=== PATIENT | female | born 1995 | race Hispanic/Latino ===

== ENCOUNTER 2016-12-19 20:26 | Emergency (ER) | payer OTHER ==
[~2016-12-19] VITALS: Ht 152.4 cm; Wt 72.7 kg
[2016-12-19 20:30] VITALS: BP 116/78; PULSE 82; RESP 16; O2SAT 100
--- NOTE | 2016-12-19 21:02 | ED.REPORT ---
HPI-Extremity Problem Lower Date of Service Dec 19, 2016 ED Provider: Dr. Oj Deras MD A 21 year old, approx. 12 week female presents to the ED with right knee pain secondary to a work injury that occurred at 1100 this morning. She was at work when she reportedly fell onto her knees and has been experiencing persistent pain; right knee greater than the left. The patient was seen at Urgent Care this afternoon just after the injury occurred. X-ray of bilateral knees was negative for fracture. She was discharged with crutches and has been using them without relief. Patient presents to the ED this evening seeking an US for her . She is expressing concern that the fetus was injured during the fall and is currently endorsing abdominal cramps. She denies any other injuries at this time. Patient denies any vaginal bleeding. Nursing Notes Stated Complaint: FALL AT WORK EARLIER RIGHT KNEE PAIN Chief Complaint: Extremity Trauma Nursing Notes Reviewed: Yes Allergies: Coded Allergies: No Known Allergies (Unverified Allergy, Unknown, 12/19/16) General Time Seen by MD: 21:01 Chief Complaint Knee injury right Hx Obtained From: Patient Arrived By: Walk-in Onset Occurred: 5 - 8 hours ago Symptom Duration: Since onset Caused by: Accidental, Fall on ground Location: : Knee right Quality: Painful Severity: Current: Mild Severity: Maximum: Moderate Associated with: Reports: Abdominal pain, Denies: Unable to bear weight, Unable to move joint, Unable to walk Pertinent Negative: Pt denies other symptoms Recent Healthcare: No recent hospitalization, Recent doctor visit Past Medical History Past Medical History Notes: PCP: [facility] [place] [place] Past Medical History 12 weeks Past Surgical History None reported. Smoking History Unknown if Ever Smoker Social History Other Social History: Good social support, Local resident Ambulatory Status Independent Review of Systems Musculoskeletal: Reports: Joint pain (Bilateral knee pain R>L) Complete sys rev & neg: except as marked. GI: Reports: Abdominal pain (cramping) Female: Reports: (12 weeks), Denies: Vaginal bleeding - abnl Physical Exam Initial Vital Signs Vital Signs (First) Date Time Temp Pulse Resp B/P Pulse Ox O2 Delivery O2 Flow Rate FiO2 12/19/16 20:30 37.3 82 16 116/78 100 Room Air Initial VS: Reviewed Head / Eyes: Atraumatic, Normocephalic, PERRL Neck: Supple, Non-tender, Full range of motion Upper Extremities: Vascular intact, Neuro intact, No swelling, No tenderness Skin: Warm, Dry, No cyanosis Neurologic: Alert, Oriented, Nonfocal Psychiatric: Mood/affect normal, Behavior normal, Normal thought content Lower Extremity / Pelvis / MS: Atraumatic, Neurologic intact, Vascular intact LOWER EXTREMITIES: Unable to assess secondary to splint placement Ankle / Foot: Atraumatic, Neurologic intact, Vascular intact General/Constitutional: Awake, Alert, No acute distress Respiratory / Chest: Atraumatic, Breath sounds NL, Breath sounds = bilat, No respiratory distress Cardiovascular: Heart rate NL, Regular rhythm, Heart sounds NL Abdomen: Atraumatic, Soft Tenderness/Guarding/Rebound: Positive: Tender diffuse (Mild) Interpretation & Diagnostics US Focused OB IMPRESSION: Single, viable IUP. No complicating features. Exam Interpreted by: Radiologist (Nightshift) Indication: Pelvic pain Findings: Intrauterine preg present Re-Eval/Medical Decision Med Decision/Clinical Course 21-year-old with a first trimester suffered a minor fall today. She is having some pelvic cramps and is concerned about . Ultrasound shows a normal-appearing eight week with good heart beat. Patient is reassured. Discharged home in stable condition. Continue previously prescribed care for her knee contusion/sprain. Re-Evaluation/Progress : Time of Eval: 23:47 Patient Status: Condition improved, Pain improved Re-Evaluation/Progress Note: Patient condition is re-evaluated. She is informed of her current results and the intended treatment plan. All questions about her results are addressed. She understands and agrees with the plan to discharge with follow up. Counseled Regarding: Diagnosis, Need for follow-up, When/why to return to ED Discharge & Departure Impression: Primary Impression: Pelvic pain affecting Additional Impression: Knee sprain Encounter type: initial encounter Involved ligament of knee: unspecified ligament Laterality: unspecified laterality Qualified Code: S83.90XA - Sprain of unspecified site of unspecified knee, initial encounter Disposition: Home Discharge Condition All VS Reviewed: Yes Condition: Improved Patient Instructions: Crutch Instructions (ED), (ED), Splint Care (ED ) Additional Instructions: Your appears normal by ultrasound. Follow-up with your OB provider. Referrals: [facility] (PCP) [facility] Attestation Portions of this note were transcribed by Arabella Arnodl. I, Dr. Deras, personally performed the history, physical exam and medical decision-making; I reviewed and confirmed the accuracy of the information in the transcribed note. Signed by: Arabella Arnold, 12/19/16. copies to: [facility] Oj Tillman MD Dec 19, 2016 21:02 ARABELLA ARNOLD Dec 19, 2016 21:08
[2016-12-19 23:41] VITALS: BP 104/61; PULSE 81; RESP 16; O2SAT 98
[2016-12-19 23:48] VITALS: BP 104/61; PULSE 81; RESP 16; O2SAT 98
--- NOTE | 2016-12-24 16:45 | DRSVH ---
CORRECTED ACCESSION/PLACER # ON 12/24/16 PROCEDURE: US OB<14 WKS INDICATIONS: CRAMPS, PREG OUTSIDE/PRIOR DATING DATA: Last menstrual period (LMP): 08/29/16. LMP-based estimated date of delivery (MICHEAL): 06/05/16. First dating scan (date and location): 12/19/16. Estimated date of delivery (MICHEAL) from first dating scan: 07/28/17. TECHNIQUE: Real-time scanning was performed of the fetus and maternal pelvic organs, with image documentation. Endovaginal scanning was also performed to better visualize the fetus and maternal ovaries. COMPARISON: None. FINDINGS: Embryo: OB-TOE FORMER STITCHDOWNS Ultrasound Procedure Report Early Gestation [employer] [place] Rump Length: 1.86 cm Gestational Age (CRL): 8 weeks, 3 days Summary Fetus Summary Heart Rate: 178 bpm Comments: A normal yolk sac is noted. No perigestational bleeds. Measurement variability in dating: +/- 4 weeks by LMP, +/- 7 days by mean sac diameter (use before 6 weeks gestation if crown-rump length not able to be measured), +/- 5 days by crown-rump length (up t o 8 weeks 6 days gestation), +/- 7 days by crown-rump length (from 9 weeks to 13 weeks 6 days gestati on). Maternal organs: Ovaries appear within normal size limits. There is a small hypoechoic cyst in the right ovary measuring up to approximately 2.5 cm likely representing a corpus luteal cyst. IMPRESSION: 1. Single living intrauterine with calculated gestational age of 8 weeks 3 days correspond ing to an estimated delivery date of 07/28/17. Findings are discordant with the patient's dates by LM P which may be due to inaccurate LMP dates. 2. Probable corpus luteal cyst in the right ovary. Dictated by: James Parikh M.D. on 12/20/2016 at 9:06 Approved by: James Parikh M.D. on 12/20/2016 at 9:11
== END 2016-12-19 23:48 | disposition home or self-care (01) ==
LOC: SED 20:26
DX: O9A.211 Injury, poisoning and certain other consequences of external causes complicating pregnancy, first trimester (principal); S83.8X1A Sprain of other specified parts of right knee, initial encounter; W18.39XA Other fall on same level, initial encounter; Y93.89 Activity, other specified; Y92.69 Other specified industrial and construction area as the place of occurrence of the external cause; Y99.0 Civilian activity done for income or pay; R10.2 Pelvic and perineal pain; Z3A.12 12 weeks gestation of pregnancy